=== PATIENT | female | born 1950 | race Two or more races ===

== ENCOUNTER 2025-03-30 23:17 | Emergency (ER) | payer OTHER ==
[~2025-03-30] VITALS: Ht 157.5 cm; Wt 72.6 kg
[2025-03-30] MEDS ORDERED: FIORICET (23:36)
[2025-03-30] MEDS ORDERED: METFORMIN HCL500 M3 PO (23:36)
[2025-03-30] MEDS ORDERED: ZESTRIL40 M1 PO (23:36)
[2025-03-31] MEDS ORDERED: KETOROLAC TROMETHAMINE 60 MG VIAL IM STA (01:16)
[2025-03-31] MEDS ORDERED: DEXAMETHASONE SODIUM PHOSPHATE 4 MG/ML VIAL IM STA (01:17)
[2025-03-31] MEDS ORDERED: ACETAMINOPHEN 500 MG GEL..CAP PO STA (01:17)
[2025-03-31] MEDS ORDERED: KETOROLAC TROMETHAMINE 60 MG VIAL IM ONE (01:28)
[2025-03-31] MEDS ORDERED: ACETAMINOPHEN 500 MG GEL..CAP PO ONE (01:28)
[2025-03-31] MEDS ORDERED: DEXAMETHASONE SODIUM PHOSPHATE 4 MG/ML VIAL ONE (01:29)
== END 2025-03-31 01:43 | disposition home or self-care (01) ==
LOC: ER 23:17
DX: M25.562 Pain in left knee (principal); E11.9 Type 2 diabetes mellitus without complications; Z79.84 Long term (current) use of oral hypoglycemic drugs; Z91.013 Allergy to seafood

== ENCOUNTER 2025-05-02 15:00 | Outpatient (CLI) | payer OTHER ==
[~2025-05-02 15:00] MED LIST: FIORICET; METFORMIN HCL500 M3 PO; ZESTRIL40 M1 PO
== END 2025-05-02 15:10 | disposition home or self-care (01) ==
LOC: PPH VACUNA 15:00
PROVIDERS: ATTEND Emergency Medicine Pediatric Emergency Medicine
DX: Z23 Encounter for immunization (principal)